=== PATIENT | female | born 1935 | race Asian ===

== ENCOUNTER 2018-09-16 10:42 | Observation (INO) | payer MEDICARE ==
[~2018-09-16] VITALS: Ht 152.4 cm; Wt 57.7 kg
[~2018-09-16 10:42] MED LIST: FURO-93 PO; TELM40TA PO
--- NOTE | 2018-09-16 11:25 | NUR ---
Patient reports she feels her UTI has not resolved since completing course of ciprofloxacin, reports suprapubic abdominal pain persists. Patient states she began having a dry cough, shortness of breath and dizzines around the time that she started taking ciprofloxacin and relates these symptoms to the medication. Patient resting in rney in no acute distress, speaking in full sentences. Call simons placed within reach, continuous blood pressure, SPO2 and cardiac monitoring in place. Urine sample collected.
[2018-09-16] MEDS ORDERED: SODIUM CHLORIDE FLUSH 10ML SYR IVF ONE (12:00)
[2018-09-16 12:22] LABS: BASOPHILS # (AUTO) 0.01 x10^3/uL (0-0.1); BASOPHILS % (AUTO) 0 % (0-1); EOSINOPHILS # (AUTO) 0.01 x10^3/uL (0-0.4); EOSINOPHILS % (AUTO) 0 % (1-7); LYMPHOCYTES # (AUTO) 1.08 x10^3/uL (1-3.4); LYMPHOCYTES % (AUTO) 29 % (22-44); MD NO; MEAN CORPUSCULAR VOLUME 94.3 fL (80-100); MONOCYTES # (AUTO) 0.41 x10^3/uL (0.2-0.8); MONOCYTES % (AUTO) 11 % (2-9); NEUTROPHILS % (AUTO) 59 % (42-75); PLATELET COUNT 194 x10^3/uL (130-400); RED BLOOD COUNT 3.75 x10^6/uL (3.82-5.3); RED CELL DISTRIBUTION WIDTH 14.2 % (9.6-15.2)
--- NOTE | 2018-09-16 12:22 | NUR ---
Plan of care updated, patient to have CT scan, IV started. Patient resting in gurney in no acute distress, call simons within reach.
[2018-09-16 12:28] LABS: ALANINE AMINOTRANSFERASE 19 U/L (12-78); ALBUMIN 3.2 g/dL (3.4-5.0); ANION GAP 5 mmol/L (5-15); CHLORIDE 105 mmol/L (98-107); CREATININE 0.89 mg/dL (0.55-1.02)
[2018-09-16 12:30] LABS: MICROSCOPIC NOT IND
[2018-09-16 12:32] LABS: ALKALINE PHOSPHATASE 65 U/L (45-117); BILIRUBIN,TOTAL 1.1 mg/dL (0.2-1.0); TOTAL PROTEIN 8.6 g/dL (6.4-8.2); TROPONIN I < 0.015 ng/mL (0.000-0.045)
[2018-09-16 12:38] LABS: CULTURE INDICATED? NO
[2018-09-16] MEDS ORDERED: OMNIPAQUE 350 MG/ML, 100ML BOTTLE ONE (12:54)
[2018-09-16] MEDS ORDERED: CIPR500T8 PO (13:42)
[2018-09-16] MEDS ORDERED: OXYB5TAB PO (13:42)
[2018-09-16] MEDS ORDERED: SODIUM CHLORIDE FLUSH 10ML SYR IVF PRN (14:00)
--- NOTE | 2018-09-16 14:39 | NUR ---
Report called to MICHAEL Perez
[2018-09-16] MEDS ORDERED: ASPIRIN 81 MG TABLET CHEW ONE (14:41)
[2018-09-16] MEDS ORDERED: ASPIRIN 81 MG TABLET CHEW PO ONE (15:00)
[2018-09-16 15:35] VITALS: BP 182/71
[2018-09-16] MEDS ORDERED: NITROGLYCERIN 0.4 MG BOTTLE (25 TABS) SL PRN (16:30)
[2018-09-16] MEDS ORDERED: ONDANSETRON 2MG/ML, 2ML IVPush PRN (16:30)
[2018-09-16] MEDS ORDERED: TEMAZEPAM 15 MG CAPSULE PO PRN (16:30)
[2018-09-16] MEDS ORDERED: ENALAPRILAT 1.25 MG/ML, 2ML IVPush PRN (16:30)
[2018-09-16] MEDS ORDERED: ENOXAPARIN 40 MG/0.4 ML SQ SCH (16:30)
[2018-09-16] MEDS ORDERED: morphine SULFATE 10 MG/ML, 1ML IVPush PRN (16:30)
[2018-09-16 17:26] LABS: TROPONIN I < 0.015 ng/mL (0.000-0.045)
[2018-09-16] MEDS: PANTOPROZOLE 40MG TABLET PO SCH ×2 (17:34→19:56)
[2018-09-16] MEDS: ACETAMINOPHEN 325 MG TABLET PO PRN (19:56)
[2018-09-16] MEDS: CIPROFLOXACIN 500 MG TABLET PO SCH (19:57)
[2018-09-16 20:04] VITALS: BP 136/72
[2018-09-16] MEDS ORDERED: CIPROFLOXACIN 500 MG TABLET PO SCH (21:00)
[2018-09-17 01:18] LABS: TROPONIN I < 0.015 ng/mL (0.000-0.045)
[2018-09-17 02:23] VITALS: BP 130/65
[2018-09-17 05:07] LABS: CHOL/HDL RATIO 2.6; LDL/HDL RATIO 1.3 (0.5-3.0)
[2018-09-17] MEDS: PANTOPROZOLE 40MG TABLET PO SCH (06:12)
[2018-09-17 07:59] VITALS: BP 134/67
[2018-09-17] MEDS: CIPROFLOXACIN 500 MG TABLET PO SCH (08:48)
[2018-09-17] MEDS ORDERED: ERGOCALCIFEROL 50,000 UNIT CAPSULE PO SCH (09:00)
[2018-09-17] MEDS ORDERED: OXYBUTYNIN CHLORIDE 5 MG TABLET PO SCH (09:00)
[2018-09-17] MEDS ORDERED: LOSARTAN 50MG TABLET PO SCH (09:00)
[2018-09-17] MEDS ORDERED: REGADENOSON 0.4 MG/5 ML SYRINGE ONE (09:32)
[2018-09-17] MEDS: ACETAMINOPHEN 325 MG TABLET PO PRN (12:24)
[2018-09-17 13:48] VITALS: BP 129/69
[2018-09-17] MEDS ORDERED: PANT40TA5 PO (14:13)
[2018-09-17] MEDS ORDERED: ERGO500017 PO (14:13)
== END 2018-09-17 16:37 | disposition home or self-care (01) ==
LOC: ED 12:11 → SUATTDRO 15:31 → UNDOADMOB 15:33 → 5SO 15:33 → INTOOBSV 15:33 → 5SO 16:15 → DCLOUNGE 09-17 16:20
PROVIDERS: ADMIT Internal Medicine; ATTEND Internal Medicine
DX: R07.89 Other chest pain (principal); E55.9 Vitamin D deficiency, unspecified; I11.0 Hypertensive heart disease with heart failure; I50.9 Heart failure, unspecified; K57.90 Diverticulosis of intestine, part unspecified, without perforation or abscess without bleeding; M48.54XA Collapsed vertebra, not elsewhere classified, thoracic region, initial encounter for fracture; M51.36 Other intervertebral disc degeneration, lumbar region; N39.0 Urinary tract infection, site not specified; R32 Unspecified urinary incontinence; Z90.49 Acquired absence of other specified parts of digestive tract
CPT/HCPCS: 36415; 74177; 78452; 80053; 80061; 81003; 82306; 83690; 84443; 84484; 85025; 93005; 93017; 93306; 96372; 99284; A9502; C9898; G0378; J1650; J2785; Q9967

== ENCOUNTER 2019-10-15 21:43 | Inpatient (IN) | payer MEDICARE ==
[~2019-10-15] VITALS: Ht 152.4 cm; Wt 50.8 kg
[~2019-10-15 21:43] MED LIST changes: +ACETAMINOPHEN; +CEFD300C37 PO; +CIPR500T8 PO; +CYAN500T54 PO; +DIPH25CA23 PO; +ERGO500017 PO; +HYDR-826 PO; +MULT1TAB60 PO; +NITR25CA2 PO; +NITR50CA PO; +OXYB-39 PO; +PANT40TA5 PO
[2019-10-15] MEDS ORDERED: PIPERACILLIN/TAZO/PMX 3.375GM 50 ML ONE (21:53)
--- NOTE | 2019-10-15 21:57 | NUR ---
MED REC DONE TO BEST OF PTS ABILITY. PT POOR HISTORIAN
[2019-10-15] MEDS ORDERED: PIPERACILLIN/TAZO/PMX 4.5GM 100 ML IVPB ONE (22:00)
[2019-10-15] MEDS ORDERED: VANCOMYCIN PER PHARMACY MC ONE (22:00)
[2019-10-15] MEDS ORDERED: SODIUM CHLORIDE FLUSH 10ML SYR IVF ONE (22:00)
[2019-10-15] MEDS ORDERED: SODIUM CHLORIDE 0.9% 1,000ML IVBOLUS ONE (22:00)
--- NOTE | 2019-10-15 22:23 | NUR ---
BCX2 DRAWN. ABX NOW INFUSING.
[2019-10-15 22:27] LABS: RAPID INFLUENZA A Negative (Negative); RAPID INFLUENZA B Negative (Negative)
[2019-10-15] MEDS ORDERED: VANCOMYCIN PMX 1GM/200ML 200 ML IV ONE (22:30)
[2019-10-15 22:34] LABS: MEAN CORPUSCULAR HEMOGLOBIN 32.1 pg (27.0-34.8); MEAN CORPUSCULAR HGB CONC 33.7 g/dL (32.4-35.8); MEAN CORPUSCULAR VOLUME 95.4 fL (80-100); PLATELET COUNT 297 x10^3/uL (130-400); RED BLOOD COUNT 3.51 x10^6/uL (3.82-5.3); RED CELL DISTRIBUTION WIDTH 14.6 % (9.6-15.2)
[2019-10-15 22:46] LABS: ALANINE AMINOTRANSFERASE 22 U/L (12-78); ALBUMIN 2.2 g/dL (3.4-5.0); ANION GAP 11 mmol/L (5-15); CALCIUM 8.8 mg/dL (8.5-10.1); CHLORIDE 92 mmol/L (98-107)
[2019-10-15 22:50] LABS: ALKALINE PHOSPHATASE 77 U/L (45-117); BILIRUBIN,TOTAL 0.8 mg/dL (0.2-1.0); TOTAL PROTEIN 7.5 g/dL (6.4-8.2)
[2019-10-15 22:52] LABS: TROPONIN I 0.193 ng/mL (0.000-0.045)
[2019-10-15] MEDS ORDERED: ASPIRIN 325 MG TABLET PO ONE (23:00)
[2019-10-15] MEDS ORDERED: FUROSEMIDE 40 MG/4 ML IV ONE (23:00)
[2019-10-15] MEDS ORDERED: ASPIRIN 325 MG TABLET ONE (23:01)
[2019-10-15] MEDS ORDERED: FUROSEMIDE 40 MG/4 ML ONE (23:01)
[2019-10-15 23:04] LABS: MD YES
[2019-10-15 23:09] LABS: BAND#(MANUAL) 0.78 x10^3/uL; BANDS%(MANUAL) 7 % (0-7); LYMPH#(MANUAL) 0.34 x10^3/uL (1-3.4); LYMPHS% (MANUAL) 3 % (22-44); METAMYELOCYTES# (MANUAL) 0.11 x10^3/uL (0-0); METAMYELOCYTES% (MANUAL) 1 % (0-1); MONOS#(MANUAL) 0.11 x10^3/uL (0.3-2.7); MONOS% (MANUAL) 1 % (2-9); NRBC % (MANUAL) 2 % (0-1); SEG#(MANUAL) 9.86 x10^3/uL (1.8-6.8); SEGS% (MANUAL) 88 % (42-75)
[2019-10-15 23:12] LABS: <PLATELET ESTIMATE> ADEQUATE; HYPOCHROMIA 1+; POLYCHROMASIA 1+
[2019-10-15 23:13] LABS: <PLT MORPHOLOGY> NORMAL PLT MORPH
--- NOTE | 2019-10-15 23:13 | NUR ---
FAMILY CALLED FOR UPDATE AND LEFT PHONE # ANGEL LUIS [phone]
--- NOTE | 2019-10-15 23:20 | NUR ---
PT BROUGHT DOWN TO 5LMPNC. PT TOLERATING WELL. PT MEDICATED PER SEP. [facility] HAS SEEN PT.
--- NOTE | 2019-10-15 23:36 | NUR ---
POC DISCUSSED. PT DENIES THE NEED TO URINATE CURRENTLY. PT EDUCATED ON PROPER CALL LIGHT USE AND ABLE TO REPEAT BACK TEACHINGS. PT AWARE TO PRESS CALL LIGHT WHEN SHE NEEDS TO URINATE. CALL LIGHT ON LAP. PT ON ALL MONITORING.
--- NOTE | 2019-10-15 23:46 | NUR ---
WITH PTS PERMISSION, PTS EMILIA HEIN WAS CALLED BACK AND POC DISCUSSED. HE INFORMED THIS RN PT WISHES TO BE A DNR/DNI. ALL QUESTIONS ANSWERED. HE IS AWARE OF THE HOSPITALS CURRENT VISITING POLICY.
[2019-10-16] MEDS ORDERED: POTASSIUM CHLORIDE 20 MEQ TAB.ER.PRT PO ONE
[2019-10-16] MEDS ORDERED: hydrALAzine 20 MG/ML, 1ML IVPush PRN
[2019-10-16] MEDS ORDERED: LIDODERM 5% PATCH TD PRN
[2019-10-16] MEDS ORDERED: PHARMACY MAY ADJ FOR RENAL FX MC PRN
[2019-10-16] MEDS ORDERED: DOCUSATE 100 MG CAPSULE PO PRN
[2019-10-16] MEDS ORDERED: ACETAMINOPHEN 325 MG TABLET PO PRN
--- NOTE | 2019-10-16 00:23 | NUR ---
PT ASSISTED TO BEDSIDE COMMODE AND BACK INTO BED. PT TOLERATED WELL. PT HAD APPROX 300ML URINE OUT. PT PASSED GAS EXTENSIVELY HOWEVER DID NOT PRODUCE BM. CALL LIGHT ON LAP. BED RAILS UPX2.
--- NOTE | 2019-10-16 00:46 | NUR ---
BREAK RN: PT RESTING IN [facility] ON ISOLATION PRECAUTIONS. VSS. NAD. NO NEEDS AT THIS TIME
[2019-10-16] MEDS ORDERED: HEPARIN 5,000 UNITS/ML, 1ML ONE (01:06)
[2019-10-16] MEDS ORDERED: POTASSIUM CHLORIDE 20 MEQ TAB.ER.PRT ONE (01:06)
[2019-10-16] MEDS: HEPARIN 5,000 UNITS/ML, 1ML SQ SCH ×3 (01:23→15:42)
[2019-10-16] MEDS: ERGOCALCIFEROL 50,000 UNIT CAPSULE PO SCH (01:23)
--- NOTE | 2019-10-16 01:26 | NUR ---
PT MEDICATED PER MAR. POC DISCUSSED. PT DENIES CURRENT NEEDS. CALL LIGHT ON LAP.
[2019-10-16 02:15] VITALS: BP 114/66
[2019-10-16 02:21] VITALS: BP 114/66
[2019-10-16 05:50] LABS: MEAN CORPUSCULAR HEMOGLOBIN 32.8 pg (27.0-34.8); MEAN CORPUSCULAR HGB CONC 34.5 g/dL (32.4-35.8); MEAN CORPUSCULAR VOLUME 95.1 fL (80-100); MEAN PLATELET VOLUME 6.2 fL (7.4-10.4); PLATELET COUNT 273 x10^3/uL (130-400); RED BLOOD COUNT 3.29 x10^6/uL (3.82-5.3); RED CELL DISTRIBUTION WIDTH 14.6 % (9.6-15.2)
[2019-10-16] MEDS ORDERED: PIPERACILLIN/TAZO/PMX 3.375GM 50 ML IV SCH (06:00)
[2019-10-16 06:04] LABS: ANION GAP 8 mmol/L (5-15); CALCIUM 8.7 mg/dL (8.5-10.1); CHLORIDE 96 mmol/L (98-107)
[2019-10-16 06:08] LABS: CREATININE 1.07 mg/dL (0.55-1.02); TROPONIN I 0.129 ng/mL (0.000-0.045)
[2019-10-16 07:06] LABS: BASOPHILS # (AUTO) 0.05 x10^3/uL (0-0.1); BASOPHILS % (AUTO) 0 % (0-1); EOSINOPHILS # (AUTO) 0.02 x10^3/uL (0-0.4); EOSINOPHILS % (AUTO) 0 % (1-7); LYMPHOCYTES # (AUTO) 0.85 x10^3/uL (1-3.4); LYMPHOCYTES % (AUTO) 7 % (22-44); MD SCAN; MONOCYTES # (AUTO) 0.08 x10^3/uL (0.2-0.8); MONOCYTES % (AUTO) 1 % (2-9); NEUTROPHILS # (AUTO) 11.25 x10^3/uL (1.8-6.8); NEUTROPHILS % (AUTO) 92 % (42-75)
[2019-10-16 08:30] VITALS: BP 100/58
[2019-10-16] MEDS: CYANOCOBALAMIN 1,000 MCG TABLET PO SCH (08:31)
[2019-10-16] MEDS: MULTIVITAMIN 1 TABLET PO SCH ×2 (08:31→20:42)
[2019-10-16] MEDS: OXYBUTYNIN CHLORIDE 5 MG TABLET PO SCH (08:31)
[2019-10-16] MEDS ORDERED: FUROSEMIDE 20 MG/2 ML IV SCH (09:00)
[2019-10-16] MEDS ORDERED: LINEZOLID PMX 600MG/300ML 300 ML IV SCH (10:00)
[2019-10-16] MEDS: PANTOPRAZOLE 40MG TABLET PO SCH (10:23)
[2019-10-16] MEDS ORDERED: AZITHROMYCIN 500 MG in SODIUM CHLORIDE 0.9% 250 ML IV SCH (12:00)
[2019-10-16] MEDS: CEFTRIAXONE PMX 1GM/50ML 50 ML IV SCH (12:34)
[2019-10-16 14:07] VITALS: BP 109/53
[2019-10-16 20:39] VITALS: BP 126/69
[2019-10-17] MEDS: HEPARIN 5,000 UNITS/ML, 1ML SQ SCH ×3 (00:07→18:45)
[2019-10-17 03:00] VITALS: BP 94/45
[2019-10-17 05:22] LABS: MEAN CORPUSCULAR HEMOGLOBIN 32.5 pg (27.0-34.8); MEAN CORPUSCULAR HGB CONC 33.9 g/dL (32.4-35.8); MEAN CORPUSCULAR VOLUME 95.8 fL (80-100); MEAN PLATELET VOLUME 6.1 fL (7.4-10.4); PLATELET COUNT 253 x10^3/uL (130-400); RED BLOOD COUNT 2.91 x10^6/uL (3.82-5.3)
[2019-10-17 05:32] LABS: ANION GAP 6 mmol/L (5-15); CALCIUM 9.1 mg/dL (8.5-10.1); CHLORIDE 99 mmol/L (98-107); CREATININE 0.82 mg/dL (0.55-1.02)
[2019-10-17 06:02] LABS: BASOPHILS # (AUTO) 0.01 x10^3/uL (0-0.1); BASOPHILS % (AUTO) 0 % (0-1); EOSINOPHILS % (AUTO) 0 % (1-7); LYMPHOCYTES % (AUTO) 7 % (22-44); MD SCAN; MONOCYTES % (AUTO) 1 % (2-9); NEUTROPHILS # (AUTO) 11.87 x10^3/uL (1.8-6.8); NEUTROPHILS % (AUTO) 92 % (42-75)
[2019-10-17 06:40] VITALS: BP 111/70
[2019-10-17 08:30] VITALS: BP 115/71
[2019-10-17] MEDS ORDERED: ACETAMINOPHEN 325 MG TABLET PO PRN (09:00)
[2019-10-17] MEDS ORDERED: POTASSIUM CHLORIDE 20 MEQ TAB.ER.PRT PO ONE (09:00)
[2019-10-17] MEDS: FUROSEMIDE 20 MG TABLET PO SCH (10:20)
[2019-10-17] MEDS: MULTIVITAMIN 1 TABLET PO SCH ×2 (10:20→21:03)
[2019-10-17] MEDS: LACTOBACILLUS CHEW TABLET PO SCH ×3 (10:20→21:03)
[2019-10-17] MEDS: OXYBUTYNIN CHLORIDE 5 MG TABLET PO SCH (10:20)
[2019-10-17] MEDS: CYANOCOBALAMIN 1,000 MCG TABLET PO SCH (10:21)
[2019-10-17] MEDS: PANTOPRAZOLE 40MG TABLET PO SCH (10:21)
[2019-10-17] MEDS: CEFTRIAXONE PMX 1GM/50ML 50 ML IV SCH (12:56)
[2019-10-17 13:18] VITALS: BP 131/78
[2019-10-17 20:32] VITALS: BP 130/78
[2019-10-18 02:03] VITALS: BP 124/74
[2019-10-18] MEDS: HEPARIN 5,000 UNITS/ML, 1ML SQ SCH ×3 (02:11→17:25)
[2019-10-18 04:57] LABS: MEAN CORPUSCULAR HGB CONC 33.1 g/dL (32.4-35.8); MEAN CORPUSCULAR VOLUME 96.6 fL (80-100); MEAN PLATELET VOLUME 5.9 fL (7.4-10.4); PLATELET COUNT 241 x10^3/uL (130-400); RED BLOOD COUNT 2.85 x10^6/uL (3.82-5.3); RED CELL DISTRIBUTION WIDTH 14.8 % (9.6-15.2)
[2019-10-18 05:11] LABS: CHLORIDE 104 mmol/L (98-107)
[2019-10-18 05:15] LABS: % IRON SATURATION 8 % (20-55); ANION GAP 6 mmol/L (5-15); CALCIUM 8.9 mg/dL (8.5-10.1); CREATININE 0.71 mg/dL (0.55-1.02); IRON LEVEL 21 mcg/dL (50-170); TOTAL IRON BINDING CAPACITY 270 mcg/dL (250-450)
[2019-10-18 05:41] LABS: MD YES
[2019-10-18 05:43] LABS: BAND#(MANUAL) 0.12 x10^3/uL; BANDS%(MANUAL) 1 % (0-7); LYMPH#(MANUAL) 0.95 x10^3/uL (1-3.4); LYMPHS% (MANUAL) 8 % (22-44); METAMYELOCYTES# (MANUAL) 0.12 x10^3/uL (0-0); METAMYELOCYTES% (MANUAL) 1 % (0-1); MONOS#(MANUAL) 0.24 x10^3/uL (0.3-2.7); MONOS% (MANUAL) 2 % (2-9); MYELOCYTES# (MANUAL) 0.12 x10^3/uL (0-0); MYELOCYTES% (MANUAL) 1 % (0-0); SEG#(MANUAL) 10.35 x10^3/uL (1.8-6.8); SEGS% (MANUAL) 87 % (42-75)
[2019-10-18 05:44] LABS: <PLATELET ESTIMATE> ADEQUATE; <PLT MORPHOLOGY> NORMAL PLT MORPH; POLYCHROMASIA 1+
[2019-10-18 07:48] VITALS: BP 127/75
[2019-10-18] MEDS: LACTOBACILLUS CHEW TABLET PO SCH ×3 (08:39→20:28)
[2019-10-18] MEDS: CYANOCOBALAMIN 1,000 MCG TABLET PO SCH (08:40)
[2019-10-18] MEDS: FUROSEMIDE 20 MG TABLET PO SCH (08:40)
[2019-10-18] MEDS: MULTIVITAMIN 1 TABLET PO SCH ×2 (08:40→20:28)
[2019-10-18] MEDS: OXYBUTYNIN CHLORIDE 5 MG TABLET PO SCH (08:40)
[2019-10-18] MEDS: PANTOPRAZOLE 40MG TABLET PO SCH (08:40)
[2019-10-18] MEDS: CEFTRIAXONE PMX 1GM/50ML 50 ML IV SCH (11:33)
[2019-10-18 13:18] VITALS: BP 128/75
[2019-10-18] MEDS: IRON SUCROSE COMPLEX 100MG/5ML IV SCH (14:27)
[2019-10-18] MEDS ORDERED: SULF1TAB24 PO (16:28)
[2019-10-18] MEDS ORDERED: TELM80TA PO (16:28)
[2019-10-18] MEDS ORDERED: OMEP-110 PO (16:28)
[2019-10-18 20:23] VITALS: BP 123/72
[2019-10-18] MEDS: GUAIFENESIN ER 600 MG TABLET PO SCH (20:28)
[2019-10-19 01:29] VITALS: BP 174/84
[2019-10-19] MEDS ORDERED: BENZONATATE 100 MG CAPSULE PO ONE (02:00)
[2019-10-19] MEDS: HEPARIN 5,000 UNITS/ML, 1ML SQ SCH ×3 (02:12→17:51)
[2019-10-19 02:16] VITALS: BP 153/71
[2019-10-19 06:06] LABS: MEAN CORPUSCULAR HEMOGLOBIN 32.4 pg (27.0-34.8); MEAN CORPUSCULAR HGB CONC 33.7 g/dL (32.4-35.8); MEAN CORPUSCULAR VOLUME 95.9 fL (80-100); MEAN PLATELET VOLUME 6.1 fL (7.4-10.4); PLATELET COUNT 231 x10^3/uL (130-400); RED BLOOD COUNT 2.75 x10^6/uL (3.82-5.3); RED CELL DISTRIBUTION WIDTH 14.9 % (9.6-15.2)
[2019-10-19 06:15] LABS: ANION GAP 6 mmol/L (5-15); CHLORIDE 101 mmol/L (98-107)
[2019-10-19 06:16] LABS: CREATININE 0.67 mg/dL (0.55-1.02)
[2019-10-19 06:35] LABS: MD YES
[2019-10-19 06:37] LABS: <PLATELET ESTIMATE> ADEQUATE; <PLT MORPHOLOGY> NORMAL PLT MORPH; BAND#(MANUAL) 0.12 x10^3/uL; BANDS%(MANUAL) 1 % (0-7); LYMPH#(MANUAL) 1.28 x10^3/uL (1-3.4); LYMPHS% (MANUAL) 11 % (22-44); METAMYELOCYTES# (MANUAL) 0.23 x10^3/uL (0-0); METAMYELOCYTES% (MANUAL) 2 % (0-1); MONOS#(MANUAL) 0.35 x10^3/uL (0.3-2.7); MONOS% (MANUAL) 3 % (2-9); MYELOCYTES# (MANUAL) 0.35 x10^3/uL (0-0); MYELOCYTES% (MANUAL) 3 % (0-0); POLYCHROMASIA 1+; SEG#(MANUAL) 9.28 x10^3/uL (1.8-6.8); SEGS% (MANUAL) 80 % (42-75)
[2019-10-19 07:11] VITALS: BP 142/71
[2019-10-19] MEDS: LACTOBACILLUS CHEW TABLET PO SCH ×3 (09:11→20:18)
[2019-10-19] MEDS: OXYBUTYNIN CHLORIDE 5 MG TABLET PO SCH (09:11)
[2019-10-19] MEDS: PANTOPRAZOLE 40MG TABLET PO SCH (09:11)
[2019-10-19] MEDS: CYANOCOBALAMIN 1,000 MCG TABLET PO SCH (09:11)
[2019-10-19] MEDS: GUAIFENESIN ER 600 MG TABLET PO SCH ×2 (09:11→20:18)
[2019-10-19] MEDS: IRON SUCROSE COMPLEX 100MG/5ML IV SCH (09:11)
[2019-10-19] MEDS: MULTIVITAMIN 1 TABLET PO SCH ×2 (09:11→20:18)
[2019-10-19 12:40] VITALS: BP 119/68
[2019-10-19] MEDS: LOSARTAN 100 MG TAB PO SCH (12:50)
[2019-10-19] MEDS: CEFTRIAXONE PMX 1GM/50ML 50 ML IV SCH (12:50)
[2019-10-19 20:13] VITALS: BP 130/75
[2019-10-19 23:24] VITALS: BP 136/78
[2019-10-20 01:21] VITALS: BP 128/72
[2019-10-20] MEDS: HEPARIN 5,000 UNITS/ML, 1ML SQ SCH ×3 (02:38→18:16)
[2019-10-20 05:14] LABS: MEAN CORPUSCULAR HEMOGLOBIN 31.9 pg (27.0-34.8); MEAN CORPUSCULAR HGB CONC 32.9 g/dL (32.4-35.8); MEAN CORPUSCULAR VOLUME 97.1 fL (80-100); MEAN PLATELET VOLUME 6.1 fL (7.4-10.4); PLATELET COUNT 241 x10^3/uL (130-400); RED BLOOD COUNT 2.82 x10^6/uL (3.82-5.3); RED CELL DISTRIBUTION WIDTH 14.8 % (9.6-15.2)
[2019-10-20 05:25] LABS: ANION GAP 2 mmol/L (5-15); CALCIUM 9.4 mg/dL (8.5-10.1); CHLORIDE 104 mmol/L (98-107)
[2019-10-20 05:26] LABS: CREATININE 0.63 mg/dL (0.55-1.02)
[2019-10-20 05:56] LABS: MD YES
[2019-10-20 05:57] LABS: EOS#(MANUAL) 0.11 x10^3/uL (0.0-0.4); EOS% (MANUAL) 1 % (1-7); LYMPH#(MANUAL) 1.42 x10^3/uL (1-3.4); LYMPHS% (MANUAL) 13 % (22-44); METAMYELOCYTES# (MANUAL) 0.22 x10^3/uL (0-0); METAMYELOCYTES% (MANUAL) 2 % (0-1); MONOS#(MANUAL) 0.11 x10^3/uL (0.3-2.7); MONOS% (MANUAL) 1 % (2-9); MYELOCYTES# (MANUAL) 0.22 x10^3/uL (0-0); MYELOCYTES% (MANUAL) 2 % (0-0); POLYCHROMASIA 1+; SEG#(MANUAL) 8.83 x10^3/uL (1.8-6.8); SEGS% (MANUAL) 81 % (42-75)
[2019-10-20 05:58] LABS: <PLATELET ESTIMATE> ADEQUATE; <PLT MORPHOLOGY> NORMAL PLT MORPH
[2019-10-20 06:07] VITALS: BP 168/77
[2019-10-20] MEDS: IRON SUCROSE COMPLEX 100MG/5ML IV SCH (09:18)
[2019-10-20] MEDS: LOSARTAN 100 MG TAB PO SCH (09:19)
[2019-10-20] MEDS: LACTOBACILLUS CHEW TABLET PO SCH ×3 (09:19→20:28)
[2019-10-20] MEDS: OXYBUTYNIN CHLORIDE 5 MG TABLET PO SCH (09:19)
[2019-10-20] MEDS: PANTOPRAZOLE 40MG TABLET PO SCH (09:19)
[2019-10-20] MEDS: GUAIFENESIN ER 600 MG TABLET PO SCH ×2 (09:19→20:28)
[2019-10-20] MEDS: MULTIVITAMIN 1 TABLET PO SCH ×2 (09:20→20:28)
[2019-10-20] MEDS: CYANOCOBALAMIN 1,000 MCG TABLET PO SCH (09:20)
[2019-10-20 12:07] VITALS: BP 152/73
[2019-10-20] MEDS: CEFTRIAXONE PMX 1GM/50ML 50 ML IV SCH (12:16)
[2019-10-20 18:55] VITALS: BP 148/67
[2019-10-21 00:33] VITALS: BP 142/57
[2019-10-21] MEDS: HEPARIN 5,000 UNITS/ML, 1ML SQ SCH ×3 (02:04→20:04)
[2019-10-21 06:28] VITALS: BP 158/74
[2019-10-21] MEDS: LOSARTAN 100 MG TAB PO SCH (08:07)
[2019-10-21] MEDS: PANTOPRAZOLE 40MG TABLET PO SCH (08:07)
[2019-10-21] MEDS: OXYBUTYNIN CHLORIDE 5 MG TABLET PO SCH (08:07)
[2019-10-21] MEDS: LACTOBACILLUS CHEW TABLET PO SCH ×3 (08:07→20:04)
[2019-10-21] MEDS: GUAIFENESIN ER 600 MG TABLET PO SCH ×2 (08:07→20:04)
[2019-10-21] MEDS: MULTIVITAMIN 1 TABLET PO SCH ×2 (08:07→20:04)
[2019-10-21] MEDS: CYANOCOBALAMIN 1,000 MCG TABLET PO SCH (08:08)
[2019-10-21 09:08] LABS: MEAN CORPUSCULAR HEMOGLOBIN 32.4 pg (27.0-34.8); MEAN CORPUSCULAR HGB CONC 33.1 g/dL (32.4-35.8); MEAN CORPUSCULAR VOLUME 97.9 fL (80-100); MEAN PLATELET VOLUME 5.9 fL (7.4-10.4); PLATELET COUNT 263 x10^3/uL (130-400); RED BLOOD COUNT 2.77 x10^6/uL (3.82-5.3); RED CELL DISTRIBUTION WIDTH 14.9 % (9.6-15.2)
[2019-10-21 09:13] LABS: ANION GAP 5 mmol/L (5-15); CALCIUM 9.4 mg/dL (8.5-10.1); CHLORIDE 103 mmol/L (98-107)
[2019-10-21 09:14] LABS: CREATININE 0.63 mg/dL (0.55-1.02)
[2019-10-21 10:03] LABS: BASOPHILS # (AUTO) 0.01 x10^3/uL (0-0.1); BASOPHILS % (AUTO) 0 % (0-1); EOSINOPHILS # (AUTO) 0.06 x10^3/uL (0-0.4); EOSINOPHILS % (AUTO) 1 % (1-7); LYMPHOCYTES % (AUTO) 10 % (22-44); MD SCAN; MONOCYTES # (AUTO) 0.27 x10^3/uL (0.2-0.8); MONOCYTES % (AUTO) 3 % (2-9); NEUTROPHILS # (AUTO) 7.18 x10^3/uL (1.8-6.8); NEUTROPHILS % (AUTO) 86 % (42-75)
[2019-10-21] MEDS: CEFTRIAXONE PMX 1GM/50ML 50 ML IV SCH (11:58)
[2019-10-21 12:15] VITALS: BP 151/69
[2019-10-21 18:35] VITALS: BP 118/54
[2019-10-21] MEDS ORDERED: FUROSEMIDE 20 MG/2 ML IV ONE (19:00)
[2019-10-22 02:26] VITALS: BP 141/69
[2019-10-22] MEDS: HEPARIN 5,000 UNITS/ML, 1ML SQ SCH ×3 (04:59→20:02)
[2019-10-22 06:33] VITALS: BP 150/75
[2019-10-22 06:47] LABS: BASOPHILS # (AUTO) 0.01 x10^3/uL (0-0.1); BASOPHILS % (AUTO) 0 % (0-1); EOSINOPHILS # (AUTO) 0.07 x10^3/uL (0-0.4); EOSINOPHILS % (AUTO) 1 % (1-7); LYMPHOCYTES # (AUTO) 1.26 x10^3/uL (1-3.4); LYMPHOCYTES % (AUTO) 15 % (22-44); MD NO; MEAN CORPUSCULAR HEMOGLOBIN 32.5 pg (27.0-34.8); MEAN CORPUSCULAR HGB CONC 33.9 g/dL (32.4-35.8); MEAN CORPUSCULAR VOLUME 95.9 fL (80-100); MONOCYTES # (AUTO) 0.37 x10^3/uL (0.2-0.8); MONOCYTES % (AUTO) 4 % (2-9); NEUTROPHILS # (AUTO) 6.73 x10^3/uL (1.8-6.8); NEUTROPHILS % (AUTO) 80 % (42-75); PLATELET COUNT 314 x10^3/uL (130-400); RED BLOOD COUNT 2.73 x10^6/uL (3.82-5.3); RED CELL DISTRIBUTION WIDTH 14.6 % (9.6-15.2)
[2019-10-22 06:56] LABS: ANION GAP 6 mmol/L (5-15); CALCIUM 9.6 mg/dL (8.5-10.1); CHLORIDE 100 mmol/L (98-107); CREATININE 0.59 mg/dL (0.55-1.02)
[2019-10-22] MEDS ORDERED: ACID1TAB7 PO (08:28)
[2019-10-22] MEDS ORDERED: CEFD300C37 PO (08:28)
[2019-10-22] MEDS ORDERED: DOXY100T PO (08:30)
[2019-10-22] MEDS: CYANOCOBALAMIN 1,000 MCG TABLET PO SCH (10:11)
[2019-10-22] MEDS: PANTOPRAZOLE 40MG TABLET PO SCH (10:11)
[2019-10-22] MEDS: LACTOBACILLUS CHEW TABLET PO SCH ×3 (10:11→20:02)
[2019-10-22] MEDS: GUAIFENESIN ER 600 MG TABLET PO SCH ×2 (10:11→20:02)
[2019-10-22] MEDS: OXYBUTYNIN CHLORIDE 5 MG TABLET PO SCH (10:11)
[2019-10-22] MEDS: MULTIVITAMIN 1 TABLET PO SCH ×2 (10:11→20:02)
[2019-10-22] MEDS: LOSARTAN 100 MG TAB PO SCH (10:11)
[2019-10-22] MEDS: CEFTRIAXONE PMX 1GM/50ML 50 ML IV SCH (11:47)
[2019-10-22 13:08] VITALS: BP 115/65
[2019-10-22 19:20] VITALS: BP 149/75
[2019-10-22] MEDS: CEFDINIR 300 MG CAPSULE PO SCH (20:02)
[2019-10-23] MEDS: ERGOCALCIFEROL 50,000 UNIT CAPSULE PO SCH (00:27)
[2019-10-23 02:21] VITALS: BP 144/67
[2019-10-23] MEDS: HEPARIN 5,000 UNITS/ML, 1ML SQ SCH ×3 (04:10→20:46)
[2019-10-23 07:04] VITALS: BP 133/69
[2019-10-23] MEDS: LOSARTAN 100 MG TAB PO SCH (08:27)
[2019-10-23] MEDS: GUAIFENESIN ER 600 MG TABLET PO SCH ×2 (08:27→20:45)
[2019-10-23] MEDS: LACTOBACILLUS CHEW TABLET PO SCH ×3 (08:27→20:45)
[2019-10-23] MEDS: MULTIVITAMIN 1 TABLET PO SCH ×2 (08:27→20:45)
[2019-10-23] MEDS: CEFDINIR 300 MG CAPSULE PO SCH (08:28)
[2019-10-23] MEDS: PANTOPRAZOLE 40MG TABLET PO SCH (08:28)
[2019-10-23] MEDS: CYANOCOBALAMIN 1,000 MCG TABLET PO SCH (08:28)
[2019-10-23] MEDS: OXYBUTYNIN CHLORIDE 5 MG TABLET PO SCH (08:28)
[2019-10-23 14:13] VITALS: BP 121/67
[2019-10-23 19:19] VITALS: BP 116/68
[2019-10-24 00:49] VITALS: BP 121/66
[2019-10-24] MEDS: HEPARIN 5,000 UNITS/ML, 1ML SQ SCH ×3 (06:08→22:59)
[2019-10-24 07:08] VITALS: BP 115/66
[2019-10-24] MEDS: LOSARTAN 100 MG TAB PO SCH (09:37)
[2019-10-24] MEDS: CYANOCOBALAMIN 1,000 MCG TABLET PO SCH (09:37)
[2019-10-24] MEDS: MULTIVITAMIN 1 TABLET PO SCH ×2 (09:38→20:27)
[2019-10-24] MEDS: PANTOPRAZOLE 40MG TABLET PO SCH (09:38)
[2019-10-24] MEDS: CEFDINIR 300 MG CAPSULE PO SCH (09:38)
[2019-10-24] MEDS: OXYBUTYNIN CHLORIDE 5 MG TABLET PO SCH (09:38)
[2019-10-24] MEDS: LACTOBACILLUS CHEW TABLET PO SCH ×3 (09:38→20:27)
[2019-10-24] MEDS: GUAIFENESIN ER 600 MG TABLET PO SCH ×2 (09:38→20:27)
[2019-10-24 13:07] VITALS: BP 97/60
[2019-10-24 18:27] VITALS: BP 110/69
[2019-10-25 00:18] VITALS: BP 117/65
[2019-10-25] MEDS: HEPARIN 5,000 UNITS/ML, 1ML SQ SCH (06:23)
[2019-10-25 06:49] VITALS: BP 112/68
[2019-10-25] MEDS: LACTOBACILLUS CHEW TABLET PO SCH (07:48)
[2019-10-25] MEDS: CEFDINIR 300 MG CAPSULE PO SCH (07:48)
[2019-10-25] MEDS: PANTOPRAZOLE 40MG TABLET PO SCH (07:48)
[2019-10-25] MEDS: MULTIVITAMIN 1 TABLET PO SCH (07:48)
[2019-10-25] MEDS: GUAIFENESIN ER 600 MG TABLET PO SCH (07:49)
[2019-10-25] MEDS: LOSARTAN 100 MG TAB PO SCH (07:49)
[2019-10-25] MEDS: CYANOCOBALAMIN 1,000 MCG TABLET PO SCH (07:49)
[2019-10-25] MEDS: OXYBUTYNIN CHLORIDE 5 MG TABLET PO SCH (07:49)
== END 2019-10-25 11:07 | disposition home health service (06) | DRG 871 ==
LOC: ED 23:14 → EDIP 23:51 → ICU 10-16 02:11 → 5SO 10-17 05:41 → 4WST 10-19 22:46
PROVIDERS: ADMIT Hospitalist; ATTEND Internal Medicine
DX: A41.9 Sepsis, unspecified organism (principal); J96.01 Acute respiratory failure with hypoxia; J15.9 Unspecified bacterial pneumonia; G93.41 Metabolic encephalopathy; I50.43 Acute on chronic combined systolic (congestive) and diastolic (congestive) heart failure; I21.A1 Myocardial infarction type 2; N17.0 Acute kidney failure with tubular necrosis; R65.21 Severe sepsis with septic shock; E87.1 Hypo-osmolality and hyponatremia; D63.8 Anemia in other chronic diseases classified elsewhere; E78.5 Hyperlipidemia, unspecified; E86.0 Dehydration; E87.6 Hypokalemia; I11.0 Hypertensive heart disease with heart failure; K21.9 Gastro-esophageal reflux disease without esophagitis; Z66 Do not resuscitate; Z79.2 Long term (current) use of antibiotics; Z82.49 Family history of ischemic heart disease and other diseases of the circulatory system; Z82.5 Family history of asthma and other chronic lower respiratory diseases; Z87.440 Personal history of urinary (tract) infections
CPT/HCPCS: 36415; 36600; 71045; 80048; 80053; 82803; 83540; 83550; 83605; 83735; 83880; 84100; 84145; 84484; 85025; 87040; 87081; 87400; 93005; 93306; 96361; 96365; G0378; J0456; J0696; J1644; J1756; J1940; J2020; J2543; J3370; J7030; J7050; Q0177

== ENCOUNTER 2019-12-04 16:36 | Observation (INO) | payer MEDICARE ==
[~2019-12-04] VITALS: Ht 152.4 cm; Wt 51.0 kg
[~2019-12-04 16:36] MED LIST changes: +ACID1TAB7 PO; +DOXY100T PO; +OMEP-110 PO; +SULF1TAB24 PO; +TELM80TA PO
--- NOTE | 2019-12-04 17:01 | NUR ---
PT C/O INTERMITTENT, ACHY, LEFT CP STARTING THIS AM. C/O INCREASED PEDAL EDEMA STARTING A COUPLE WEEKS AGO. PT STATES SHE ONLY TAKES ONE HTN MEDICATION DAILY AM. PT CONNECTED TO MONITORING. CALL LIGHT IN REACH.
--- NOTE | 2019-12-04 17:12 | NUR ---
PIV PLACE, LABS COLLECTED. AWAITING FURTHER ORDERS AT THIS TIME.
--- NOTE | 2019-12-04 17:39 | NUR ---
TASK RN: PT RESTING ON YUNIELFLORINDA. RADHA. NO NEEDS REQUESTED AT THIS TIME.
--- NOTE | 2019-12-04 18:04 | NUR ---
AT BEDSIDE FOR ASSESSMENT.
[2019-12-04 18:30] LABS: BASOPHILS # (AUTO) 0.02 x10^3/uL (0-0.1); BASOPHILS % (AUTO) 0 % (0-1); EOSINOPHILS # (AUTO) 0.02 x10^3/uL (0-0.4); EOSINOPHILS % (AUTO) 0 % (1-7); LYMPHOCYTES # (AUTO) 1.25 x10^3/uL (1-3.4); LYMPHOCYTES % (AUTO) 27 % (22-44); MD NO; MEAN CORPUSCULAR HEMOGLOBIN 32.5 pg (27.0-34.8); MEAN CORPUSCULAR HGB CONC 33.5 g/dL (32.4-35.8); MEAN PLATELET VOLUME 7.3 fL (7.4-10.4); MONOCYTES % (AUTO) 6 % (2-9); NEUTROPHILS # (AUTO) 3.13 x10^3/uL (1.8-6.8); NEUTROPHILS % (AUTO) 66 % (42-75); PLATELET COUNT 240 x10^3/uL (130-400); RED BLOOD COUNT 3.19 x10^6/uL (3.82-5.3); RED CELL DISTRIBUTION WIDTH 14.1 % (9.6-15.2)
[2019-12-04] MEDS ORDERED: SODIUM CHLORIDE FLUSH 10ML SYR IVF ONE (18:30)
[2019-12-04] MEDS ORDERED: ASPIRIN 81 MG TABLET CHEW PO ONE (18:30)
[2019-12-04 18:40] LABS: ALANINE AMINOTRANSFERASE 18 U/L (12-78); ALBUMIN 3.2 g/dL (3.4-5.0); ANION GAP 7 mmol/L (5-15); CALCIUM 9.1 mg/dL (8.5-10.1); CHLORIDE 107 mmol/L (98-107); CREATININE 0.92 mg/dL (0.55-1.02)
[2019-12-04 18:45] LABS: ALKALINE PHOSPHATASE 63 U/L (45-117); BILIRUBIN,TOTAL 0.6 mg/dL (0.2-1.0); TOTAL PROTEIN 7.9 g/dL (6.4-8.2); TROPONIN I < 0.015 ng/mL (0.000-0.045)
[2019-12-04] MEDS ORDERED: ASPIRIN 81 MG TABLET CHEW ONE (18:50)
--- NOTE | 2019-12-04 19:23 | NUR ---
PT AMBULATED TO RESTROOM WITH STEADY GAIT.
--- NOTE | 2019-12-04 19:33 | NUR ---
AT BEDSIDE TO UPDATE PT ON POC. PT TO BE ADMITTED FOR OBSERVATION. PT IN AGREEMENT. PT HAS HER CELL PHONE TO UPDATE HER FAMILY. PT PROVIDED WARM BLANKET.
--- NOTE | 2019-12-04 20:13 | NUR ---
US AT BEDSIDE.
--- NOTE | 2019-12-04 20:41 | NUR ---
ALL RESULTS ARE BACK AT THIS TIME. CHART UP FOR RECHECK.
--- NOTE | 2019-12-04 21:13 | NUR ---
REPORT GIVEN TO LAURA RODRIGUEZ.
--- NOTE | 2019-12-04 21:16 | NUR ---
HOSPITALIST AT BEDSIDE.
[2019-12-04 21:52] VITALS: BP 135/58
[2019-12-04] MEDS ORDERED: morphine SULFATE 10 MG/ML, 1ML IV PRN (22:00)
[2019-12-04] MEDS ORDERED: ONDANSETRON 2MG/ML, 2ML IVPush PRN (22:00)
[2019-12-04] MEDS ORDERED: NITROGLYCERIN 0.4 MG/SPRAY SL PRN (22:00)
[2019-12-04] MEDS ORDERED: ENOXAPARIN 40 MG/0.4 ML SQ SCH (22:00)
[2019-12-04] MEDS ORDERED: NITROGLYCERIN 0.4 MG BOTTLE (25 TABS) SL PRN (22:00)
[2019-12-04] MEDS ORDERED: hydrALAzine 20 MG/ML, 1ML IVPush PRN (22:00)
[2019-12-04] MEDS ORDERED: TRAZODONE 50MG TABLET PO PRN (22:00)
[2019-12-04] MEDS ORDERED: ACETAMINOPHEN 325 MG TABLET PO PRN (22:00)
[2019-12-05 00:14] LABS: TROPONIN I < 0.015 ng/mL (0.000-0.045)
[2019-12-05 01:06] VITALS: BP 135/66
[2019-12-05 04:45] LABS: BASOPHILS # (AUTO) 0.03 x10^3/uL (0-0.1); BASOPHILS % (AUTO) 1 % (0-1); EOSINOPHILS # (AUTO) 0.04 x10^3/uL (0-0.4); EOSINOPHILS % (AUTO) 1 % (1-7); LYMPHOCYTES # (AUTO) 1.51 x10^3/uL (1-3.4); LYMPHOCYTES % (AUTO) 34 % (22-44); MD NO; MEAN CORPUSCULAR HEMOGLOBIN 32.4 pg (27.0-34.8); MEAN CORPUSCULAR HGB CONC 33.1 g/dL (32.4-35.8); MEAN PLATELET VOLUME 6.2 fL (7.4-10.4); MONOCYTES # (AUTO) 0.36 x10^3/uL (0.2-0.8); MONOCYTES % (AUTO) 8 % (2-9); NEUTROPHILS # (AUTO) 2.48 x10^3/uL (1.8-6.8); NEUTROPHILS % (AUTO) 56 % (42-75); PLATELET COUNT 216 x10^3/uL (130-400); RED BLOOD COUNT 2.91 x10^6/uL (3.82-5.3); RED CELL DISTRIBUTION WIDTH 13.6 % (9.6-15.2)
[2019-12-05 04:59] LABS: CALCIUM 8.9 mg/dL (8.5-10.1); CHLORIDE 110 mmol/L (98-107)
[2019-12-05 05:07] LABS: ANION GAP 6 mmol/L (5-15); CHOL/HDL RATIO 2.4; CHOLESTEROL, TOTAL 141 mg/dL (140-239); CREATININE 0.73 mg/dL (0.55-1.02); HDL CHOL % 41 % (28-40); HDL CHOLESTEROL (DIRECT) 58 mg/dL (40-60); LDL CHOLESTEROL,CALCULATED 70 mg/dL (54-169); LDL/HDL RATIO 1.2 (0.5-3.0); TRIGLYCERIDES 63 mg/dL (50-200); TROPONIN I < 0.015 ng/mL (0.000-0.045); VLDL CHOLESTEROL 13 mg/dL (0-25)
[2019-12-05] MEDS ORDERED: ASPIRIN 325 MG TABLET EC PO SCH (06:00)
[2019-12-05 07:06] VITALS: BP 143/73
[2019-12-05] MEDS ORDERED: LOSARTAN 50MG TABLET ONE (07:41)
[2019-12-05] MEDS ORDERED: REGADENOSON 0.4 MG/5 ML SYRINGE ONE (08:58)
[2019-12-05] MEDS ORDERED: OMEPRAZOLE 20 MG CAPSULE.DR PO SCH (09:00)
[2019-12-05] MEDS ORDERED: LOSARTAN 100 MG TAB PO SCH (09:00)
[2019-12-05] MEDS ORDERED: OXYBUTYNIN CHLORIDE 5 MG TABLET PO SCH (09:00)
[2019-12-05 13:07] VITALS: BP 156/83
== END 2019-12-05 16:16 | disposition home or self-care (01) ==
LOC: ED 19:13 → EDIP 20:53 → INTOOBSV 20:53 → 5SO 21:44
PROVIDERS: ADMIT Family Medicine; ATTEND Family Medicine
DX: R07.89 Other chest pain (principal); I25.2 Old myocardial infarction; K21.9 Gastro-esophageal reflux disease without esophagitis; E78.5 Hyperlipidemia, unspecified; I11.0 Hypertensive heart disease with heart failure; I50.32 Chronic diastolic (congestive) heart failure; E78.00 Pure hypercholesterolemia, unspecified; E55.9 Vitamin D deficiency, unspecified; H91.90 Unspecified hearing loss, unspecified ear
CPT/HCPCS: 36415; 71045; 78452; 80048; 80053; 80061; 83735; 84443; 84484; 85025; 93005; 93017; 93970; 96372; 99285; A9502; C9898; G0378; J1650; J2785